=== PATIENT | male | born 1970 | race Caucasian/White ===

== ENCOUNTER → 2017-07-02 | Outpatient (CLI) | payer BC ==
--- NOTE | ~2017-07-02 | MR31 ---
[facility] A Service of [facility] RADIOLOGY TEXT RESULTS PATIENT: JUAN GARCIA LOCATION: [facility] : 68 UNIT #: [id number] AGE: [address]: David Patel MD SEX: M ORDER DR: [id number] [place] [id number] O MR#: [id number] Acc #: [id number] NAME: JUAN GARCIA : 1970 SEX: M STUDY DATE/TIME: 07/02/2017 15:35 UNIT: [facility] ROOM: STUDY DESCRIPTION: MR Cervical WWo Contrast Attending Physician: David Patel M.D. Referring Physician: David Patel M.D. Ordering Physician: David Patel M.D. Primary Care Physician: Primary Care Physician No MRI CENTER REPORT This report is preliminary unless electronic signature is present. EXAM Cervical spine MRI with and without contrast, 07/02/2017 PROCEDURE Routine cervical spine MRI with and without contrast COMPARISON None CLINICAL HISTORY Left side neck knot/mass for 2 weeks. FINDINGS There is a large left cervical lymph node probably in the level 2 deep to the sternocleidomastoid measuring 2.1 x 3.0 x 3.9 cm. The study is not optimized for evaluating the soft tissues. There is mild left pharyngeal tonsillar fullness likely better assessed on physical exam. No other suspicious adenopathy is seen on this musculoskeletal type cervical spine MRI. Cord signal and bone marrow signal are normal and the posterior fossa and its contents are normal and postcontrast images show no abnormal enhancement in the spinal column, spinal canal or spinal cord. While there may be some slight degenerative change, there is no canal or foraminal compromise at any level. IMPRESSION 1. Prominent left cervical lymph node as noted above highly suspicious, with incidental note made of mild prominence/or fullness of the left pharyngeal tonsil better assessed on physical exam. The findings are suspicious for metastatic cervical squamous cell carcinoma. 2. No spinal canal or spinal column or spinal cord abnormality is seen. [facility] A Service of [facility] RADIOLOGY TEXT RESULTS PATIENT: JUAN GARCIA LOCATION: [facility] : [birth year] UNIT #: [id number] AGE: [address]: David Patel MD SEX: M ORDER DR: Dictated by... Pola Staples M.D. THIS IS AN ELECTRONICALLY VERIFIED REPORT Pola Staples M.D. at 07/05/2017 4:07 PM CORINNE/karen TD: 07/03/2017 13:12 JOB #: [id number] MRI CENTER REPORT Page 1 of 1
== END | disposition home or self-care (01) ==
LOC: SMRI 15:20 → CMRI 16:00
DX: R22.1 Localized swelling, mass and lump, neck (principal); R51 Headache
CPT/HCPCS: 72156; A9581